=== PATIENT | female | born 1940 | race Caucasian/White ===

== ENCOUNTER 2017-10-27 00:51 | Inpatient (IN) | payer OTHER ==
[~2017-10-27] VITALS: Ht 160 cm; Wt 110.3 kg
[~2017-10-27 00:51] MED LIST: CALTRATE 600 +1 EACH PO; COLACE100 M1 PO; DULOXETINE HCL30 MG PO; FERROUS SULFAT325 M3 PO; FUROSEMIDE20 M1 PO; PANTOPRAZOLE SO40 M1 PO; SIMVASTATIN20 M2 PO; TYLENOL EXTRA500 M2 PO; VITAMIN D31000 UNI1 PO; XANAX1 M1 PO
--- NOTE | 2017-10-27 10:00 | Operative Report ---
Operative/Inv Procedure Report Surgery Date: 10/27/17 Name of Procedure: Revision left total knee arthroplasty with polyethylene exchange Pre-Operative Diagnosis: Left knee pain Post-Operative Diagnosis: Same Estimated Blood Loss: less than 50ml Surgeon/Loan Adviser: Kassi YING,John Vaughn Anesthesia: general endotracheal tube IV Fluids: See anesthesia record Implants: Biomet size 67 20 mm posterior stabilized polyethylene insert Drains: None Specimens: Polyethylene insert to pathology Tourniquet: 50 minutes Complications: None Condition: Stable Operative Indication: Patient's a 77 show female who had a total knee arthroscopy done several years ago [place]. Patient is said the knee has never felt right and she notices a locking or clunking when standing from a sitting position. Once she is fully extended she has no problems with her knee. She was indicated for revision of the polyethylene and exploration of the total knee components. A skilled set hands was necessary provided by Dr. René Vaughn who aided with retraction and positioning component assembly and expertise throughout the case Operative/Procedure Note Note: Once informed consent was obtained and the correct limb was identified patient brought to operative room placed on table supine position. After administration of general endotracheal anesthesia patient's left lower extremity had a thigh tourniquet placed and was prepped and draped usual sterile fashion after Durán catheter had been placed. The old incision was used and standard incision was made and carried out through subcutaneous tissue and fat. A medial parapatellar arthrotomy was performed and the patella was everted. Scar tissue is removed from the patellar tendon as well as the quadriceps tendon. Knee was placed in flexion. There were no loose large loose bodies of cement apparent. At this point the knee was taken through a range of motion. There was some mid flexion clunking instability when the knee went from 90 to approximately 30. The knee was overall stable to varus and valgus stress at 0 and at 60. At this point a decision was made to remove the polyethylene insert. The insert was removed and there was obvious wear on the post of the polyethylene insert. We then did a trial to 20 mm poly-and a posterior stabilized knee. The polyethylene that had been removed was a posterior stabilized plus insert. The 20 mm posterior stabilized insert had less of a mid flexion instability and was still stable to varus and valgus stress. A decision was made to use this as the insert. This was opened and locked onto the tibial tray after the knee had been pulse lavaged. The locking pin was placed without complication. The knee was again taken through the range of motion and found to be stable to varus and valgus stress. At this point the arthrotomy was pulse lavaged and was then closed with #1 Vicryl interrupted sutures. Subcutaneous tissues closed with #1 Vicryl and 2 -0 Vicryl interrupted sutures. The skin was closed with connie. Sterile dressings applied and patient was awakened taken recovery in stable condition.
--- NOTE | 2017-10-27 10:42 | Admission Core Measures ---
Acute Coronary Syndrome (CM) ACS Core Measures Acute Coronary Syndrome Diagnosis No Congestive Heart Failure (NEW) CHF Core Measures Congestive Heart Failure Diagnosis No Cerebrovascular Accident CVA Core Measures CVA/TIA Diagnosis No Venous Thromboembolism VTE Core Anil (View Protocol) VTE Risk Factors Surgery No Mechanical VTE Prophylaxis d/t N/A MechProphylax Ordered No VTE Pharm Prophylaxis d/t NA PharmProphylax ordered Problem List As ranked by this Provider includes Assessment & Plan 1. Pain due to total left knee replacement HOME MEDS Home Med List Acetaminophen (Tylenol Extra Strength) 500 MG TABLET 1 TAB PO TID PAIN ( Reported) Alprazolam (Xanax) 1 MG TABLET 1 TAB PO TIDPRN ANXIETY (Reported) Calcium Carbonate/Vitamin D3 (Caltrate 600 + D Tablet) 600 MG-800 TABLET 1 TAB PO DAILY SUPPLEMENT (Reported) Cholecalciferol (Vitamin D3) (Vitamin D3) 1,000 UNIT CAPSULE 1 CAP PO DAILY SUPPLEMENT (Reported) Cholecalciferol (Vitamin D3) (Vitamin D3) 1,000 UNIT CAPSULE 1 CAP PO DAILY SUPPLEMENT (Reported) Docusate Sodium (Colace) 100 MG CAPSULE 1 CAP PO DAILY STOOL SOFTENER ( Reported) Duloxetine HCl 30 MG CAPSULE.DR 1 CAP PO DAILY DEPRESSION (Reported) Ferrous Sulfate 325 MG (65 MG IRON) TABLET 1 TAB PO DAILY SUPPLEMENT ( Reported) Furosemide 20 MG TABLET 1 TAB PO BID DIURETIC (Reported) Pantoprazole Sodium 40 MG TABLET.DR 1 TAB PO DAILY GERD (Reported) Simvastatin (Simvastatin*) 20 MG TABLET 1 TAB PO QPM CHOLESTEROL (Reported)
--- NOTE | 2017-10-27 10:46 | Patient Discharge Instructions ---
Discharge Instructions General Discharge Information You were seen/treated for: Left knee pain related to total knee replacement You had these procedures: Revision left total knee replacement Watch for these problems: Increasing pain despite the use of pain medication Increasing redness, warmth or swelling Drainage of any type from incision Inability to bear weight on operative leg Persistent nausea and vomiting Fever greater than 101.5 degrees Call Surgeon to remove: [place] Do not soak the wound: Yes No bath, but you may shower: Yes Other wound care: Please keep wound clean and dry. No ointments or lotions of any type on or near incision at any time. No exceptions. Your dressing will be changed by your nurse on the second day after your surgery. Daily dry dressing changes are recommended each day thereafter. Do not soak your wound in a bath or pool at any time until otherwise indicated by your surgeon. You may shower, please dry wound immediately after shower with a clean towel. Special Instructions: Constipation: Pain medication can cause constipation. Your surgeon has recommended that you take Colace and miralax each day. You may discontinue this medication if you develop loose stool or diarrhea. If you wish to continue this medication, it is available over the counter. If you are unable to move your bowels after several days, if you are unable to pass gas and are developing bloating, nausea, or vomiting as a result, please contact your doctor. you will need to be on eliquis for prevention of blood clots. take this for the next 4 weeks or until your orthopedist tells you to stop it. Diet Continue normal diet: Yes Recommended Diet: Regular Activity Full Activity/No Limits: No Activity Self Limited: Yes Pounds, do NOT lift more than: 10 Acute Coronary Syndrome Inclusion Criteria At DC or during hospital stay patient has or had the following: ACS DIAGNOSIS No Discharge Core Measures Meds if any: Prescribed or Continued at Discharge Meds if any: NOT Prescribed or Continued at Discharge Congestive Heart Failure Inclusion Criteria At DC or during hospital stay patient has or had the following: CHF DIAGNOSIS No Discharge Core Measures Meds if any: Prescribed or Continued at Discharge Meds if any: NOT Prescribed or Continued at Discharge Cerebrovascular accident Inclusion Criteria At DC or during hospital stay patient has or had the following: CVA/TIA Diagnosis No Discharge Core Measures Meds if any: Prescribed or Continued at Discharge Meds if any: NOT Prescribed or Continued at Discharge Venous thromboembolism Inclusion Criteria VTE Diagnosis No VTE Type NONE VTE Confirmed by (Test) NONE Discharge Core Measures - Per Current guidelines, there needs to be overlap - treatment for the first 5 days of Warfarin therapy. - If discharged on Warfarin prior to 5 days of - overlap therapy, the patient will need to be - assessed for post discharge needs including - *Post discharge parental anticoagulation - *Warfarin and/or parental anticoagulation education - *Follow up date to check INR post discharge At least 5 days overlap therapy as Inpatient No Meds if any: Prescribed or Continued at Discharge Note: Overlap Therapy is Warfarin and Anticoagulant Meds if any: NOT Prescribed or Continued at Discharge
--- NOTE | 2017-10-27 10:48 | Surgical Discharge Summary ---
Visit Information Visit Dates Admission Date: 10/27/17 Discharge Date: 10/29/2017 History of Present Illness Chief Complaint: Left knee pain related to total knee replacement Medical History Isolation History: Standard Surgical History Pertinent Surgical History: knee replacement Review of Systems: See H&P Hospital Course Course Attending Physician: John Solitario MD Primary Care Physician: John Delaney MD Hospital Course: Patient was admitted to the hospital for a revision left total knee replacement. The procedure was tolerated well and patient was transferred to a general surgical floor. Diet was advanced and tolerated. The patient was evaluated and treated by physical therapy. At the time of hospital discharge, the vital signs were stable, neurovascular status was intact, and pain was controlled with the use of oral pain medications. Allergies: Coded Allergies: No Known Allergies (10/24/17) Disposition Summary Disposition Principal Diagnosis: Left knee pain related to total knee replacement Additional Diagnosis: None Discharge Disposition: SNF Discharge Instructions General Discharge Information Code Status: Full Code Patient's Diet: Regular, advance as tolerated Patient's Activity: WBAT Follow-Up Instructions/Appts: Follow up with Dr. Solitario in 2 weeks from date of surgery Medications at Discharge Discharge Medications: Stop taking the following medications: Acetaminophen (Tylenol Extra Strength) 500 MG TABLET ORAL THREE TIMES DAILY Continue taking these medications: Furosemide (Furosemide) 20 MG TABLET 1 Tablet ORAL TWICE DAILY Comments: Last Taken: 10/29/17 Time: 0800 Duloxetine HCl (Duloxetine HCl) 30 MG CAPSULE. 1 Capsule ORAL DAILY Comments: Last Taken: 10/29/17 Time: 0800 Pantoprazole Sodium (Pantoprazole Sodium) 40 MG TABLET. 1 Tablet ORAL DAILY Comments: OMEPRAZOLE GIVEN Last Taken: 10/29/17 Time: 0600 Alprazolam (Xanax) 1 MG TABLET 1 Tablet ORAL THREE TIMES A DAY NEEDED Comments: NOT GIVEN Simvastatin (Simvastatin*) 20 MG TABLET 1 Tablet ORAL Every night Comments: ATORVASTATIN GIVEN Last Taken: 10/29/17 Time: 0800 Ferrous Sulfate (Ferrous Sulfate) 325 MG (65 MG IRON) TABLET 1 Tablet ORAL DAILY Comments: NOT GIVEN Docusate Sodium (Colace) 100 MG CAPSULE 1 Capsule ORAL DAILY Cholecalciferol (Vitamin D3) (Vitamin D3) 1,000 UNIT CAPSULE 1 Capsule ORAL DAILY Comments: NOT GIVEN Calcium Carbonate/Vitamin D3 (Caltrate 600 + D Tablet) 600 MG-800 TABLET 1 Tablet ORAL DAILY Comments: NOT GIVEN Cholecalciferol (Vitamin D3) (Vitamin D3) 1,000 UNIT CAPSULE 1 Capsule ORAL DAILY Comments: NOT GIVEN Start taking the following new medications: Oxycodone HCl (Oxycodone HCl) 5 MG TABLET 5-10 Milligram ORAL EVERY 4 HOURS NEEDED as needed for PAIN Qty = 30 No Refills Comments: Last Taken: 10/29/17 Time: 1300 Apixaban (Eliquis) 2.5 MG TABLET 1 Tablet ORAL TWICE DAILY Qty = 60 No Refills Comments: Last Taken: 10/29/17 Time: 0800
[2017-10-27 11:00] VITALS: BP 130/54
[2017-10-27 12:53] VITALS: BP 120/56
--- NOTE | 2017-10-27 13:09 | PN- Orthopedic ---
Subjective Subjective: POSTOP CHECK Patient reports pain is well controlled. She reports she is tired. She tolerated lunch without nausea or vomiting. She denies numbness or parathesias. She offers no complaints. Objective Vital Signs and I&Os Vital Signs Date Time Temp Pulse Resp B/P B/P Pulse O2 O2 Flow FiO2 Mean Ox Delivery Rate 10/27 1253 97.5 64 20 120/56 97 Room Air 10/27 1100 97.4 70 18 130/54 93 Room Air Room Air Intake & Output 10/27 1600 10/27 0800 10/27 0000 10/26 1600 10/26 0810/26 0000 Intake Total Output Total Balance Patient 243 lb Weight Weight Bed scale Measurement Method Physical Exam: Gen - resting comfortably awake an alert in nad Cardiac - S1S2 noted Lungs - no respiratory distress, CTAB Abd - soft, nontender Ext - LLE dressing c/d/i, compartment soft, motor and sensory intact, alps in place, no significant edema or calf tenderness Current Medications: Current Medications Sig/Syl Start time Last Medication Dose Route Stop Time Status Admin Acetaminophen 1,000 MG Q6 10/27 1200 AC 10/27 IV 10/28 0601 1116 Acetaminophen 0 .STK-MED ONE 10/27 657 DC PO Acetaminophen 650 MG ONCE 10/27 0000 DC PO 10/27 2359 Alprazolam 1 MG TIDPRN PRN 10/27 1115 AC PO 11/03 1029 Apixaban 2.5 MG BID 10/28 09 AC PO Atorvastatin Calcium 10 MG 1700 10/27 1700 AC PO Celecoxib 400 MG ONCE 10/27 0000 DC PO 10/27 2359 Dexamethasone 0 .STK-MED ONE 10/27 0657 DC .ROUTE Dexamethasone 10 MG ONCE 10/27 0000 DC IV 10/27 2359 Dextrose/Lactated 1,000 ML Q13H 10/27 1115 AC 10/27 Ringer's IV 1117 Docusate Sodium 100 MG BID 10/27 2100 AC PO Duloxetine HCl 30 MG DAILY 10/28 09 AC PO Furosemide 20 MG BID 10/27 2100 AC PO Gabapentin 0 .STK-MED ONE 10/27 0658 DC PO Gabapentin 300 MG ONCE 10/27 0000 DC PO 10/27 2359 Morphine Sulfate 2 MG Q2P PRN 10/27 1115 AC IV Omeprazole 40 MG DAILY AC 10/28 07 AC PO Ondansetron HCl 4 MG Q6P PRN 10/27 1115 AC IV Oxycodone HCl 5 MG Q4P PRN 10/27 1115 AC PO Oxycodone HCl 10 MG Q4P PRN 10/27 1115 AC PO Oxycodone HCl 0 .STK-MED ONE 10/27 0658 DC PO Oxycodone HCl 10 MG ONCE 10/27 0000 DC PO 10/27 2359 Polyethylene Glycol 17 GM DAILY 10/28 0900 AC PO Promethazine HCl 12.5 MG Q6P PRN 10/27 1115 AC IV 11/03 1044 Scopolamine HBr 0 .STK-MED ONE 10/27 0657 DC TOP Scopolamine HBr 1 PAT ONCE 10/27 0000 DC TOP 10/27 235 Senna/Docusate Sodium 2 TAB AT BEDTIME NEED.. 10/27 1115 AC PO Vancomycin HCl 1,750 MG ONCE ONE 10/27 2100 AC Sodium Chloride 500 ML IV 10/27 225 Vancomycin HCl 1,750 MG ONCE 10/27 0000 DC Sodium Chloride 500 ML IV 10/27 2358 Assessment/Plan Assessment/Plan 77 F who is s/p left total knee revision with polyethylene exchange due to left knee pain, who is recovering well PT eval, WBAT Reg diet, IVF Postop abx - vanco x1 Pain regimen prn Home meds on board DVT ppx - alps, eliquis 2.5 big tomorrow am GI ppx on board Encourage IS Labs in am Likely d/c diaz in am Core Measures Venous Thromboembolism VTE Risk Factors Surgery No Mechanical VTE Prophylaxis d/t N/A MechProphylax Ordered No VTE Pharm Prophylaxis d/t NA PharmProphylax ordered
[2017-10-27 14:37] VITALS: BP 130/66
[2017-10-27 17:30] VITALS: BP 120/62
[2017-10-27 21:00] VITALS: BP 106/58
[2017-10-28 01:00] VITALS: BP 106/60
[2017-10-28 05:16] VITALS: BP 110/60
--- NOTE | 2017-10-28 07:35 | PN- Orthopedic ---
Subjective Subjective: Patient feels well, minimal pain, no acute events overnight Objective Vital Signs and I&Os Vital Signs Date Time Temp Pulse Resp B/P B/P Pulse O2 O2 Flow FiO2 Mean Ox Delivery Rate 10/28 0516 97.8 75 20 110/60 95 Room Air 10/28 0100 97.8 75 18 106/60 96 Room Air 10/27 2100 97.8 77 17 106/58 95 Room Air 10/27 1730 98.0 68 18 120/62 93 Room Air 10/27 1437 97.5 81 20 130/66 98 Room Air 10/27 1253 97.5 64 20 120/56 97 Room Air 10/27 1100 97.4 70 18 130/54 93 Room Air Room Air Intake & Output 10/28 0800 10/28 0000 10/27 1600 10/27 0800 10/27 0000 10/26 1600 Intake Total 645 1045 900 Output Total 650 400 200 Balance -5 645 700 Intake, IV 525 225 300 Intake, Oral 120 820 600 Output, Urine 650 400 200 Patient 243 lb Weight Weight Bed scale Measurement Method Physical Exam: Well-developed well-nourished no apparent distress. HEENT: Atraumatic, extraocular motion intact Neck: Supple, no lymphadenopathy Respiratory: No respiratory distress Extremities: No edema LEFT lower extremity dressing in place, Dressing clean dry and intact Compression wrap in place. ALPS in place Neurovascularly intact distally Bilateral calves are supple, nontender. Neuro: Alert and oriented x3 Psych: Mood affect normal, normal memory normal judgment. Skin: Warm and dry, no rash on exposed skin Results Last 48 Hours of Labs: Laboratory Tests 10/28 0657 Chemistry Sodium Pending Potassium Pending Chloride Pending Carbon Dioxide Pending Anion Gap Pending BUN Pending Creatinine Pending BUN/Creatinine Ratio Pending Hematology CBC w Diff Pending WBC Pending RBC Pending Hgb Pending Hct Pending MCV Pending MCH Pending MCHC Pending RDW Pending Plt Count Pending MPV Pending Assessment/Plan Assessment/Plan Postop day #1 status post left knee total knee arthroplasty polyethylene liner exchange Perioperative antibiotics. Pain medication as needed. Out of bed Physical therapy, weightbearing as tolerated DC IV fluids DC Durán catheter Regular diet Follow a.m. labs Eliquis for DVT prophylaxis ALPS for DVT prophylaxis Regular home meds Dressing change postop day 2 Disposition: Possible discharge to home with VNA services later today if labs acceptable, pain controlled and clears physical therapy Dw Dr Solitario who evaluated the patient as well. Core Measures Venous Thromboembolism VTE Risk Factors Surgery No Mechanical VTE Prophylaxis d/t N/A MechProphylax Ordered No VTE Pharm Prophylaxis d/t NA PharmProphylax ordered
[2017-10-28 08:09] LABS: ABSOLUTE BASOPHIL COUNT 0 /CUMM (0.0-0.2); ABSOLUTE EOSINOPHIL COUNT 0 /CUMM (0.0-0.7); ABSOLUTE GRANULOCYTE CT 4.9 /CUMM (1.4-6.5); ABSOLUTE LYMPH COUNT 1.3 /CUMM (1.2-3.4); ABSOLUTE MONOCYTE COUNT 0.5 /CUMM (0.10-0.60); BASOPHIL % 0.2 % (0.0-2.0); EOSINOPHIL % 0.1 % (0-5); GRANULOCYTE % 72.6 % (42.2-75.2); HEMATOCRIT 32.8 % (37-47); MEAN CORPUSCULAR HGB 31.6 PG (27.0-31.0); MEAN CORPUSCULAR HGB CONC 33.6 G/DL (33.0-37.0); MEAN CORPUSCULAR VOLUME 93.9 FL (81.0-99.0); MEAN PLATELET VOLUME 8.5 FL (7.4-10.4); PLATELET COUNT 205 /CUMM (130-400); RBC DISTRIBUTION WIDTH 13.9 % (11.5-14.5); RED BLOOD CELL CT 3.49 /CUMM (4.20-5.40); WHITE BLOOD CELL COUNT 6.8 /CUMM (4.8-10.8)
[2017-10-28] MEDS ORDERED: OXYCODONE HCL5 M1 PO (10:51)
[2017-10-28] MEDS ORDERED: ELIQUIS2.5 M1 PO (10:51)
[2017-10-28 17:06] VITALS: BP 110/58
[2017-10-28 21:00] VITALS: BP 110/60
[2017-10-29 01:00] VITALS: BP 126/70
[2017-10-29 05:05] VITALS: BP 110/70
--- NOTE | 2017-10-29 08:22 | PN- Orthopedic ---
Subjective Subjective: Patient reports mild stiffness in her knee. She reports ambulating with PT. She is tolerating a diet witout nausea or vomiting, passing flatus and voiding spontanously. She denies numbness, tingling, chest pain or difficulty breathing. Objective Vital Signs and I&Os Vital Signs Date Time Temp Pulse Resp B/P B/P Pulse O2 O2 Flow FiO2 Mean Ox Delivery Rate 10/29 0505 98.0 72 20 110/70 95 Room Air 10/29 0100 98.6 71 20 126/70 95 Room Air 10/28 2100 98.9 66 17 110/60 95 Room Air 10/28 1706 98.2 54 17 110/58 97 Room Air Intake & Output 10/29 1600 10/29 0800 10/29 0000 10/28 1600 10/28 0800 10/28 0000 Intake Total 480 058 197 0057 Output Total 700 200 550 650 400 Balance -700 280 250 -5 645 Intake, IV 525 225 Intake, Oral 480 800 120 820 Output, Urine 700 200 550 650 400 Physical Exam: Gen - nad Cardiac - S1S2 noted Lungs - CTAB Abd - soft, nontender Ext - LLE dressing c/d/i, moves all extremities, compartment soft, incision closed with connie healing well with no signs of infection, dressing changed, motor and sensory intact, no significant edema or calf tenderness Current Medications: Current Medications Sig/Syl Start time Last Medication Dose Route Stop Time Status Admin Alprazolam 1 MG TIDPRN PRN 10/27 1115 AC 10/28 PO 11/03 1029 2302 Apixaban 2.5 MG BID 10/28 PO 0806 Atorvastatin Calcium 10 MG 1700 10/27 1700 AC 10/28 PO 1713 Docusate Sodium 100 MG BID 10/27 PO 0806 Duloxetine HCl 30 MG DAILY 10/28 0910/29 PO 0806 Furosemide 20 MG BID 10/27 PO 0806 Morphine Sulfate 2 MG Q2P PRN 10/27 1115 AC IV Omeprazole 40 MG DAILY AC 10/28 0710/29 PO 0621 Ondansetron HCl 4 MG Q6P PRN 10/27 1115 AC IV Oxycodone HCl 5 MG Q4P PRN 10/27 1115 AC 10/28 PO 1436 Oxycodone HCl 10 MG Q4P PRN 10/27 1115 AC 10/29 PO 0150 Patient Medication 1 ED ONE ONE 10/28 1530 DC Teaching ED 10/28 1531 Polyethylene Glycol 17 GM DAILY 10/28 0900 AC 10/29 PO 0806 Promethazine HCl 12.5 MG Q6P PRN 10/27 1115 AC IV 11/03 1044 Senna/Docusate Sodium 2 TAB AT BEDTIME NEED.. 10/27 1115 AC PO Assessment/Plan Assessment/Plan 77 F POD 2 s/p left total knee arthroplasty polyethylene liner exchange, who is recovering well Cont reg diet Pain regimen prn OOB w/ PT, WBAT DVT ppx - alps, eliquis bid Home meds on board Bowel regimen on board Cont dry dressing changes daily Anticipate home w/ hhs today Will d/w Dr. Solitario Core Measures Venous Thromboembolism VTE Risk Factors Surgery No Mechanical VTE Prophylaxis d/t N/A MechProphylax Ordered No VTE Pharm Prophylaxis d/t NA PharmProphylax ordered
[2017-10-29 09:00] VITALS: BP 118/60
--- NOTE | 2017-10-29 11:03 | RADIOLOGY REPORT ---
EXAMINATION: XR KNEE, LEFT CLINICAL INFORMATION: Revision left knee replacement. Postop. COMPARISON: CT 09/12/2017 TECHNIQUE: 2 of the left knee. FINDINGS: There is a 3 component left knee replacement in satisfactory position. No fracture or dislocation is seen. There are postoperative changes to the soft tissues. IMPRESSION: Satisfactory appearance of left knee replacement.
== END 2017-10-29 15:05 | disposition home health service (06) | DRG 488 ==
LOC: SDA 00:51 → ENRESERV 09:58 → ENTRNSPT 10:20 → EDTRNSPT 10:33 → EDTRNSPTSTS 10:33 → CMPTRNSPT 10:48 → 2NB 11:02 → ENPENDDIS 10-29 08:30 → ENTRNSPT 10-29 14:49 → EDTRNSPT 10-29 15:03 → EDTRNSPTSTS 10-29 15:03 → 2NB 10-29 15:05 → CMPTRNSPT 10-29 15:26
PROVIDERS: Nurse Practitioner
PROC: 0SPD09Z Removal of Liner from Left Knee Joint, Open Approach (ICD-10-PCS; principal; 2017-10-27)
PROC: 0SUW09Z Supplement Left Knee Joint, Tibial Surface with Liner, Open Approach (ICD-10-PCS; 2017-10-27)
PROC: 3E0T3BZ Introduction of Anesthetic Agent into Peripheral Nerves and Plexi, Percutaneous Approach (ICD-10-PCS; 2017-10-27)
DX: T84.84XA Pain due to internal orthopedic prosthetic devices, implants and grafts, initial encounter (principal); Z68.41 Body mass index [BMI] 40.0-44.9, adult; K21.9 Gastro-esophageal reflux disease without esophagitis; F41.9 Anxiety disorder, unspecified; F32.9 Major depressive disorder, single episode, unspecified; E78.5 Hyperlipidemia, unspecified; I10 Essential (primary) hypertension; E66.9 Obesity, unspecified
CPT/HCPCS: 2NBP; 36415; 73560-LT; 82436; 87086; 97110-GO; 97116-GO; 97161-GP; 97530-GO; C9290; J0131; J1100; J2405; J2550; J3370; J3490; J7040